=== PATIENT | male | born 1950 | race Caucasian/White ===

== ENCOUNTER 2021-01-29 19:59 | Emergency (ER) | payer MEDICARE, BC ==
[2021-01-29] MEDS ORDERED: DOPamine/Dextrose 5%-Water 400 MG/250 ML BAG IV SCH (21:30)
[2021-01-29 21:48] LABS: PTT,PARTIAL THROMBOPLSTIN TIME 23.4 SEC (25.6-32.8)
[2021-01-29 22:16] LABS: CHLORIDE,CL 107 mmol/L (98-107); SODIUM,NA 140 mmol/L (136-145)
[2021-01-29 22:17] LABS: ANION GAP 13.4 mmol/L (5-15)
--- NOTE | 2021-01-29 23:10 | EDM.PDOC ---
ED HPI GENERAL MEDICAL PROBLEM - General Chief Complaint: Cardiovascular Problem Stated Complaint: SYNCOPE Time Seen by Provider: 01/29/21 20:00 Source of Information: Reports: Patient, Family History Limitations: Reports: No Limitations - History of Present Illness INITIAL COMMENTS - FREE TEXT/NARRATIVE: Casa is a 70 year old male who presents to ER with complaints of lighth eadedness, syncope. Daughter relates he has been having intermittent issues with feeling lightheaded off and on over the last 3 weeks. Has been seeing Alfonzo Swift for this, has had EKG and blood tests and was set up to see cardiology next week. He was having more short episodes of this today so daughter states she decided they would take him to [facility] ER for evaluation tonight but got concerned as he had 2 episodes sitting in the car where "it looked like he had seizures" so turned and came here. Patient very lightheaded on presentation to the ER. Denies chest pain. Denies shortness of breath. Very diaphoretic. Feels "as if I'm going to faint". Onset: Gradual Duration: Week(s):, Getting Worse, Intermittent Location: Reports: Generalized Improves with: Reports: Rest Worsens with: Reports: Movement Associated Symptoms: Reports: Diaphoresis, Malaise, Syncope. Denies: Confusion, Chest Pain, Cough, Fever/Chills, Loss of Appetite, Nausea/Vomiting, Shortness of Breath, Weakness - Related Data Allergies Allergy/AdvReac Type Severity Reaction Status Date / Time Sulfa (Sulfonamide Allergy Rash Verified 08/23/20 10:02 Antibiotics) Past Medical History Cardiovascular History: Reports: High Cholesterol, Hypertension Psychiatric History: Reports: Anxiety, Depression Social & Family History - Tobacco Use Tobacco Use Status *Q: Unknown Ever Used Tobacco ED ROS GENERAL - Review of Systems Review Of Systems: See Below Constitutional: Reports: Malaise, Weakness, Fatigue. Denies: Fever, Chills, Decreased Appetite HEENT: Reports: Vertigo. Denies: Ear Pain, Rhinitis, Sinus Problem, Throat Pain Respiratory: Denies: Shortness of Breath Cardiovascular: Reports: Lightheadedness. Denies: Chest Pain Endocrine: Reports: Fatigue GI/Abdominal: Denies: Abdominal Pain, Constipation, Diarrhea, Nausea, Vomiting : Reports: No Symptoms Musculoskeletal: Reports: No Symptoms Skin: Reports: Diaphoresis Neurological: Reports: Syncope, Weakness Psychiatric: Reports: No Symptoms ED EXAM, GENERAL - Physical Exam Exam: See Below Exam Limited By: No Limitations General Appearance: Alert, Mild Distress Eye Exam: Bilateral Eye: PERRL Ears: Normal External Exam, Normal TMs Nose: Normal Inspection, Normal Mucosa Throat/Mouth: Normal Inspection, Normal Oropharynx Head: Normocephalic Neck: Normal Inspection, Supple, Non-Tender Respiratory/Chest: No Respiratory Distress, Lungs Clear, Normal Breath Sounds Cardiovascular: Bradycardia GI/Abdominal: Normal Bowel Sounds, Soft, Non-Tender Extremities: Normal Inspection, No Pedal Edema Neurological: Alert, Oriented Skin Exam: Diaphoretic #1 Interpretation EKG Date: 01/29/21 Rhythm: Other (3rd degree heart block) [place]: Normal P-Wave: Present QRS: Wide ST-T: Normal Comparison: NA - No Prior EKG Course - Orders/Labs/Meds Orders: Active Orders 24 hr Category Date Time Status DOPamine/Dextrose 5%-Water [DOPamine in D5W 400 MG/250 Med 01/29/21 21:30 Pending ML] 400 mg in 250 ml IV TITRATE Medication Orders Dopamine HCl/Dextrose (Dopamine In D5w 400 Mg/250 Ml) 400 mg in 250 mls @ 0 mls/hr IV TITRATE MELISA; Protocol Labs: Laboratory Tests 01/29/21 01/29/21 01/29/21 Range/Units 21:06 21:06 21:06 WBC 5.4 (4.0-10.0) x10^3/uL RBC 3.95 L (4.5-6.0) x10^6/uL Hgb 13.0 L (14.0-18.0) g/dL Hct 36.5 L (40.0-52.0) % MCV 92.4 (78.0-93.0) fL MCH 32.9 H (26.0-32.0) pg MCHC 35.6 (32.0-36.0) g/dL RDW Coeff of Daisy 12.6 (10.0-15.0) % Plt Count 170 (130-400) x10^3/uL Immature Gran % (Auto) 0.20 (0.00-0.43) % Neut % (Auto) 61.1 (50.0-80.0) % Lymph % (Auto) 20.7 L (25.0-50.0) % Ector % (Auto) 13.4 H (2.0-11.0) % Eos % (Auto) 3.9 (0.0-4.0) % Baso % (Auto) 0.7 (0.2-1.2) % Neut # (Auto) 3.3 (1.8-7.7) x10^3/uL Lymph # (Auto) 1.1 (1.0-4.8) x10^3/uL Ector # (Auto) 0.7 (0.0-0.8) x10^3/uL Eos # (Auto) 0.2 (0.0-0.5) x10^3/uL Baso # (Auto) 0.0 (0.0-0.2) x10^3/uL Immature Gran # (Auto) 0.01 (0.00-0.07) x10^3/uL PT 9.9 (9.9-12.5) SEC INR 0.9 L (2.0-3.5) APTT 23.4 L (25.6-32.8) SEC Sodium 140 (136-145) mmol/L Potassium 5.4 H (3.5-5.1) mmol/L Chloride 107 (98-107) mmol/L Carbon Dioxide 25 (21-32) mmol/L Anion Gap 13.4 (5-15) mmol/L BUN 17 (7-18) mg/dL Creatinine 1.2 (0.70-1.30) mg/dL Est Cr Clr Drug Dosing TNP Estimated GFR (MDRD) > 60 Glucose 118 H (70-99) mg/dL Calcium 8.8 (8.5-10.1) mg/dL Corrected Calcium 9.1 (8.5-10.1) mg/dL Total Bilirubin 0.3 (0.2-1.0) mg/dL AST 28 (15-37) U/L ALT 50 (16-63) U/L Alkaline Phosphatase 58 (46-116) U/L Troponin I High Sens 29 (<=76) ng/L Total Protein 7.0 (6.4-8.2) g/dL Albumin 3.6 (3.4-5.0) g/dL Globulin 3.4 Albumin/Globulin Ratio 1.06 TSH, Ultra Sensitive 3.771 H (0.358-3.74) uIU/mL SARS CoV-2 RNA Rapid MIKE (NEGATIVE) 01/29/21 Range/Units 21:15 WBC (4.0-10.0) x10^3/uL RBC (4.5-6.0) x10^6/uL Hgb (14.0-18.0) g/dL Hct (40.0-52.0) % MCV (78.0-93.0) fL MCH (26.0-32.0) pg MCHC (32.0-36.0) g/dL RDW Coeff of Daisy (10.0-15.0) % Plt Count (130-400) x10^3/uL Immature Gran % (Auto) (0.00-0.43) % Neut % (Auto) (50.0-80.0) % Lymph % (Auto) (25.0-50.0) % Ector % (Auto) (2.0-11.0) % Eos % (Auto) (0.0-4.0) % Baso % (Auto) (0.2-1.2) % Neut # (Auto) (1.8-7.7) x10^3/uL Lymph # (Auto) (1.0-4.8) x10^3/uL Ector # (Auto) (0.0-0.8) x10^3/uL Eos # (Auto) (0.0-0.5) x10^3/uL Baso # (Auto) (0.0-0.2) x10^3/uL Immature Gran # (Auto) (0.00-0.07) x10^3/uL PT (9.9-12.5) SEC INR (2.0-3.5) APTT (25.6-32.8) SEC Sodium (136-145) mmol/L Potassium (3.5-5.1) mmol/L Chloride (98-107) mmol/L Carbon Dioxide (21-32) mmol/L Anion Gap (5-15) mmol/L BUN (7-18) mg/dL Creatinine (0.70-1.30) mg/dL Est Cr Clr Drug Dosing Estimated GFR (MDRD) Glucose (70-99) mg/dL Calcium (8.5-10.1) mg/dL Corrected Calcium (8.5-10.1) mg/dL Total Bilirubin (0.2-1.0) mg/dL AST (15-37) U/L ALT (16-63) U/L Alkaline Phosphatase (46-116) U/L Troponin I High Sens (<=76) ng/L Total Protein (6.4-8.2) g/dL Albumin (3.4-5.0) g/dL Globulin Albumin/Globulin Ratio TSH, Ultra Sensitive (0.358-3.74) uIU/mL SARS CoV-2 RNA Rapid MIKE Negative (NEGATIVE) Meds: Medications Generic Name Dose Route Start Last Admin Trade Name Freq PRN Reason Stop Dose Admin Dopamine HCl/Dextrose 400 mg in 250 mls @ 0 mls/hr 01/29/21 21:30 Dopamine In D5w 400 Mg/250 Ml IV TITRATE MELISA Protocol 5 MCG/KG/MIN - Re-Assessments/Exams Free Text/Narrative Re-Assessment/Exam: 01/29/21 Patient presented with near syncope, diaphoresis, feeling lightheaded. Telemetry shows bradycardia. EKG done, complete heart block. Difficulty with IV access so pacer pads applied to attempt capture but patient did not tolerate. Once IV access obtained, did give 1 mg of Atropine IV, rate increased to the 40s. Blood pressure did remain stable throughout stay in the ER. Labs are all essentially unremarkable. Contacted both hospitals in [place], both in [place], no available beds. Contacted [facility] in [place]. Spoke with revenue inspector Dr. Toth. Recommended starting Dopamine drip, keep atropine at bedside and agreed would need urgent pacemaker placement. Dopamine drip started. Dr. Coreas, telephone switchboard operator was contacted by [facility] staff and agreed to accept the patient in transfer. Daughter updated on all information. Will be kept NPO, obtain echo there and prepare for pacemaker. Departure - Departure Time of Disposition: 22:30 Disposition: DC/Tfer to Acute Hospital 02 Reason for Transfer *Q: Other (pacemaker) Condition: Fair Clinical Impression: Complete heart block Referrals: Alfonzo Swift, [employer] DESIGNER [Primary Care Provider] - Forms: Interfacility Transfer EMTALA, ED Department Discharge - My Orders Last 24 Hours: My Active Orders 01/29/21 21:30 DOPamine/Dextrose 5%-Water [DOPamine in D5W 400 MG/250 ML] 400 mg in 250 ml IV TITRATE - Assessment/Plan Last 24 Hours: My Active Orders 01/29/21 21:30 DOPamine/Dextrose 5%-Water [DOPamine in D5W 400 MG/250 ML] 400 mg in 250 ml IV TITRATE
== END 2021-01-29 22:30 | disposition short-term general hospital (02) ==
LOC: VM.ED 19:59
DX: I44.2 Atrioventricular block, complete (principal); E78.00 Pure hypercholesterolemia, unspecified; I10 Essential (primary) hypertension; Z88.2 Allergy status to sulfonamides; Z20.822 Contact with and (suspected) exposure to COVID-19
CPT/HCPCS: 36415; 80053; 84443; 84484; 85025; 85610; 85730; 93005; 93010; 96365; 96375; 99284; 99285-25; U0002